=== PATIENT | female | born 1965 | race Caucasian/White ===

== ENCOUNTER 2023-06-17 13:44 | Outpatient (REF) | payer OTHER, SELFPAY ==
--- NOTE | ~2023-06-17 | XR_ITS ---
EXAMINATION: XR LUMBOSACRAL SPINE WITH OBLIQUES CLINICAL INFORMATION: Lumbar spondylolisthesis. COMPARISON: None available. TECHNIQUE: AP and lateral (neutral, flexion and extension) views of the lumbosacral spine are submitted. FINDINGS: There is bony demineralization. There is a mild lumbar levoscoliosis. At L1-L2, there is a 3 mm retrolisthesis and moderate disc space narrowing. At L2-L3, there is marked disc space narrowing and a 6 mm retrolisthesis. At L4-L5, there is a 5 mm anterolisthesis. At L5-S1, there is a 4 mm anterolisthesis and mild posterior disc space narrowing. No acute fracture or spondylolisthesis is seen. The posterior elements are intact. There is multi-level lumbar degenerative disc disease and spondylosis. There are right upper quadrant surgical clips. XR/XR lumbar spine 4V min IMPRESSION: There is multi-level lumbar degenerative disc disease, spondylosis and facet arthropathy. Degenerative disc disease is most pronounced at L2-L3, where it is severe.
== END 2023-06-17 13:45 | disposition home or self-care (01) ==
LOC: HO.HOSX 13:44
PROVIDERS: Visit Provider Physician Assistant
DX: M43.16 Spondylolisthesis, lumbar region (principal)
CPT/HCPCS: 72110

== ENCOUNTER 2023-06-17 13:44 | Outpatient (AMB) | payer OTHER, SELFPAY ==
--- NOTE | 2023-06-17 14:22 | MHC.OFFVIS ---
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 She is a 57-year-old female we knew from our practice at [facility]. We last saw her a few years ago for bilateral leg pain with lumbar stenosis at L4-5. Unfortunately due to life circumstances taking care of her mother she was unable to undergo the surgery but the symptoms have just continued to progress. She is failed conservative treatment in the form of physical therapy and cortisone injections. She is here today to review an MRI she had done at [place] in 2022 and discuss further surgical options. She describes the pain as daily in her back, almost all the time. The leg pain will act up when she is up and walking. It radiates down both of her outer thighs into her calves. It will radiate into her buttocks as well. It does go away to some degree when she sits but does not completely go away. The back pain is present even when she is sitting or standing but is aggravated when she has in a flexed posture. 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 On exam she has good strength of bilateral lower extremities with diminished reflexes bilaterally. Past medical history: I updated her medical history since I have not seen her in a few years, there have been no major changes. She is diabetic with an A1c of 7.1. History of hypertension, high cholesterol, arthritis, right knee replacement, biopsy of the cervix and biopsy of the left breast, cholecystectomy. Denies any bleeding disorders, heart attacks, strokes, coagulopathies etc.. Medications include aspirin monitor RO metformin glipizide pravastatin irbesartan Klonopin lamotrigine Allergies: Percocet and Demerol Lumbar MRI from [place] was reviewed and this shows she has multilevel degenerative disc disease with a severely collapsed disc at L2-3. She has a grade 1 spondylolisthesis at L4-5 with facet arthropathy and severe central canal stenosis. At L5-S1 she has collapse of the posterior disc with moderate foraminal stenosis as well as bilateral lateral recess stenosis with crowding of the S1 nerves. Impression: 57-year-old female known to us from our practice at [facility] who we have been following with conservative management for severe lumbar stenosis who has daily disabling back pain and bilateral lower extremity pain. She is failed conservative treatment. MRI as outlined above. I will send her for flexion-extension x-rays to evaluate her spondylolisthesis in weight-bearing position. I suspect in order to treat both her back pain and her leg pain she will need lumbar fusion, at L4-5 or possibly L5-S1 as well. I will review her imaging with Dr. Jenkins and get back to the patient. We did discuss the fact that if she ends up having surgery she will need to stop her Mounjaro and her aspirin 1 week prior to surgery. Total amount of time spent in this visit was 20 minutes in discussion of symptoms, lumbar MRI imaging results and subsequent plan of care Freddy Jenkins MD,PhD [facility] Orders: Orders XR lumbar spine 4V min Today M43.16 - Spondylolisthesis, lumbar region Coding Level of Care Code Est Pt Level 3 (01172) Diagnoses Spondylolisthesis, lumbar region M43.16
== END 2023-06-17 15:05 | disposition home or self-care (01) ==
PROVIDERS: Referring Provider Physical Medicine & Rehabilitation; Visit Provider Physician Assistant
DX: M43.16 Spondylolisthesis, lumbar region (principal)
CPT/HCPCS: 99213

== ENCOUNTER 2024-10-22 14:51 | Outpatient (AMB) | payer OTHER, SELFPAY ==
--- OUTSIDE RECORDS SUMMARY | 2024-10-22 14:54 | XMS_ITS | Clinical Summary ---
Author Organization [facility] Address [address] [place] [id number] Care Team Providers Care Cardiology Clinical Nurse Specialist Name Role Phone Freddy Dennis MD Primary Care Provider [phone] Allergies Active Allergy Reactions Criticality Noted Date Comments Clarithromycin Diarrhea High 05/08/2006 Meperidine 11/27/2017 Hydromorphone Other (See Comments) 03/26/2016 Oxycodone-Acetaminophen 11/27/2017 Medications Medication Sig Dispensed Refills Start Date End Date Status ARIPiprazole (ABILIFY) 10 MG tablet TAKE 1 TABLET DAILY (TAKE ALONG WITH 20 MG TABLET FOR TOTAL DAILY DOSE OF 30 MG/DAY) 5 11/07/2017 Active ARIPiprazole (ABILIFY) 20 MG tablet Take 10 mg by mouth 2 (two) times a day. 10/28/2017 Active celecoxib (CELEBREX) 100 MG capsule Take 100 mg by mouth 2 (two) times a day. 1 11/17/2017 Active clonazePAM (KLONOPIN) 0.5 MG tablet TAKE 2 TABLETS BY MOUTH EVERY MORNING AND TAKE 1 TABLET IN THE AFTERNOON NEEDED 11/24/2017 Active vitamin B-12 (CYANOCOBALAMIN) tablet 1000 mcg Take 1,000 mcg by mouth daily. 11 10/09/2017 Active cyclobenzaprine (FLEXERIL) 10 MG tablet TAKE 1 TABLET BY MOUTH 3 TIMES A DAY NEEDED SPASMS 10/28/2017 Active diclofenac (VOLTAREN) 50 MG EC tablet Take 50 mg by mouth 3 (three) times a day. 10/26/2017 Active dicyclomine (BENTYL) 10 MG capsule 1 CAPSULE BY MOUTH 4 TIMES A DAY FOR 30 DAYS 11 11/24/2017 Active TRULICITY 0.75 MG/0.5ML SOPN USE 0.5 ML BY SUBCUTANEOUS INJECTION EVERY WEEK 11 09/25/2017 Active TRULICITY 1.5 MG/0.5ML SOPN INJECT 0.5 ML SUBCUTANEOUS EVERY WEEK 11/23/2017 Active gabapentin (NEURONTIN) 300 MG capsule Take 300 mg by mouth 4 (four) times a day. 11/21/2017 Active glipiZIDE (GLUCOTROL) tablet 5 mg TAKE 1 TABLET BY MOUTH BEFORE BREAKFAST AND BEFORE DINNER 09/04/2017 Active FREESTYLE LITE test strip TEST BLOOD SUGARS THREE TIMES DAILY DX: E11.9 11/14/2017 Active lamoTRIgine (LAMICTAL) 200 MG tablet Take 200 mg by mouth 2 (two) times a day. 5 11/24/2017 Active loratadine (CLARITIN) 10 MG tablet Take 10 mg by mouth daily. 10/01/2017 Active Lancets (FREESTYLE) lancets CHECK BLOOD SUGAR TWICE A DAY DX 250.00 3 10/13/2017 Active losartan-hydrochlo rothiazide (HYZAAR) 100-25 MG per tablet Take 1 tablet by mouth daily. 10/04/2017 Active metFORMIN (GLUCOPHAGE-XR) ER 24 hr tablet 500 mg TAKE 2 TABLETS BY MOUTH TWICE A DAY FOR 1 MONTH 9 11/21/2017 Active pantoprazole (PROTONIX) 40 MG tablet Take 40 mg by mouth every morning before breakfast. 11/04/2017 Active polyethylene glycol (GLYCOLAX) powder DISSOLVE 17 GRAMS INTO WATER OR JUICE AND DRINK ONCE DAILY 11/18/2017 Active potassium chloride (KAYCIEL) 20 MEQ/15ML (10%) solution TAKE 7.5ML BY MOUTH DAILY 11/18/2017 Active pravastatin (PRAVACHOL) tablet 40 mg Take 40 mg by mouth daily. 10/04/2017 Active promethazine (PHENERGAN) tablet 25 mg TAKE 1 TABLET BY MOUTH 3 TIMES A DAY FOR 7 DAYS NEEDED FOR NAUSEA/VOMITING 0 09/03/2017 Active QUEtiapine (SEROQUEL) 25 MG tablet Take 25 mg by mouth daily. 2 10/28/2017 Active raNITIdine (ZANTAC) 300 MG tablet Take 300 mg by mouth every night at bedtime. 0 09/10/2017 Active triamcinolone (KENALOG) 0.1 % cream APPLY TO RASH ON BREASTS TWICE A DAY FOR 14 DAYS 0 10/07/2017 Active magnesium oxide (MAG-OX) 400 MG tablet Take 1 tablet by mouth daily. 5 12/12/2018 Active naproxen (NAPROSYN) 500 MG tablet Take 500 mg by mouth 2 (two) times a day. 0 12/17/2018 Active sucralfate (CARAFATE) 1 g tablet TAKE 1 TABLET 4 TIMES A DAY BEFORE MEALS AND AT BEDTIME 2 11/16/2018 Active warfarin (COUMADIN) 1 MG tablet Take 8 tabs daily or as directed by physician 56 tablet 0 01/22/2019 Active HYDROmorphone (DILAUDID) 2 MG tablet 1 to 2 tabs every 6 hours as needed for pain 50 tablet 0 02/02/2019 Active celecoxib (CeleBREX) 200 MG capsule TAKE 1 CAPSULE BY MOUTH EVERY DAY FOR 15 DAYS 0 01/19/2019 Active hydroCHLOROthiazid e (HYDRODIURIL) tablet 25 mg Take 25 mg by mouth daily. 0 05/19/2019 Active fluconazole (DIFLUCAN) 150 MG tablet TAKE 1 TABLET BY MOUTH ONCE A WEEK FOR 6 MONTHS 0 08/15/2020 Active irbesartan (AVAPRO) 300 MG tablet Take 300 mg by mouth daily. 0 06/26/2020 Active amitriptyline (ELAVIL) 10 MG tablet Take 10-20 mg by mouth every night at bedtime. 0 01/09/2021 Active indomethacin (INDOCIN) 50 MG capsule TAKE 1 CAPSULE BY MOUTH 2 TIMES A DAY FOR 7 DAYS, WITH FOOD OR MILK 0 01/17/2021 Active methocarbamol (ROBAXIN) 750 MG tablet Take 750 mg by mouth. 0 08/29/2021 Active acetaminophen-code ine (TYLENOL #3) 300-30 MG per tablet 0 01/24/2022 Active amoxicillin (AMOXIL) 500 MG tablet Take 4 tabs 1 hour prior to dental appointment 20 tablet 3 04/11/2022 Active Active Problems Problem Noted Date Diagnosed Date Primary osteoarthritis of left knee 06/01/2019 Arthritis of right knee 11/27/2017 Family History Medical History Relation Name Comments Clotting disorder Brother Diabetes Father Hypertension Father Cancer Mother Clotting disorder Mother Hypertension Mother Relation Name Status Comments Brother Father Mother Social History Tobacco Use Types Packs/Day Years Used Date Smoking Tobacco: Never Alcohol Use Standard Drinks/Week Comments Yes 0 (1 standard drink = 0.6 oz pur e alcohol) social Sex and Gender Information Value Date Recorded Sex Assigned at Not on file Gender Identity Not on file Sexual Orientation Not on file Job Start Date Occupation Industry Not on file Not on file Not on file Last Filed Vital Signs Vital Sign Reading Time Taken Comments Blood Pressure - - Pulse - - Temperature - - Respiratory Rate - - Oxygen Saturation - - Inhaled Oxygen Concentration - - Weight 128.4 kg (283 lb) 02/13/2022 9:12 AM EDT Height 162.6 cm (5' 4 ) 02/13/2022 9:12 AM EDT Body Mass Index 48.58 02/13/2022 9:12 AM EDT Plan of Treatment Health Maintenance Due Date Last Done Comments Hepatitis B Vaccines (1 of 3 - 3-dose series) 1966 Hepatitis C Screening 1966 Depression Screening 1978 BMI Counseling 1984 Preventative Health Evaluation 1984 Cervical Cancer Screening (Pap Smear) 10/21/1987 Colon Cancer Screening (Colonoscopy) 10/21/2011 Pneumococcal Vaccine (2 of 2 - PCV) 06/22/2013 06/22/2012 Breast Cancer Screening (Mammogram) 2016 Shingrix-Zoster Vaccine (1 o f 2) 2016 DTap / Tdap / Td (3 - Td or Tdap) 04/06/2020 04/06/2010, 11/24/1999 COVID-19 Vaccine (2 - 2023-2 5 season) 2024 11/14/2020 Influenza Vaccine (#1) 2024 RSV Ped < 20 months Aged Out No longe r eligible based on patient's age to complete this topic Care Teams Cardiology Clinical Nurse Specialist Relationship Specialty Start Date End Date Freddy Dennis MD [address] [place] [address], [address] [place] [address] PCP - General Supervisor Insecticide 11/18/17
--- NOTE | 2024-10-22 15:01 | HO.SPINEOV ---
Intake Visit Reasons: Back pain Intake Note: Ms. Landeros is her today c/o back pain. Autopsy Assistant Required: No Assessment & Plan Assessment & Plan (1) Spondylolisthesis, lumbar region: Code(s): M43.16 - Spondylolisthesis, lumbar region Category: Medical Plan Mrs Landeros is here in follow-up. She recently strained her back. She is not sure exactly what happened just woke up feeling pain radiating up the center of her spinal column. No lower extremity symptoms. She has been trying [id number] medications and giving this a little bit of time. On exam, she is a little uncomfortable we would able to stand and walk with a normal gait in the hallway. I got x-rays today and this shows stable degenerative changes at L2-3 and a slight spondylolisthesis at L4-5. We had previously consider targeting L4-5 for fusion surgery, but the symptoms in her lower extremities went away so she was reluctant to proceed which is certainly reasonable. I told her to give this current back flare-up some more time but if it does not get better we could certainly consider getting her an MRI. Total amount of time spent in this visit was 20 minutes in discussion of symptoms, lumbar x-ray imaging results and subsequent plan of care Freddy Jenkins MD,PhD [facility] Orders: Orders XR lumbar spine 4V min Today M43.16 - Spondylolisthesis, lumbar region Coding Level of Care Code Est Pt Level 3 (81368) Diagnoses Spondylolisthesis, lumbar region M43.16
== END 2024-10-22 15:58 | disposition home or self-care (01) ==
LOC: HO.HNS 14:51
PROVIDERS: Visit Provider Physician Assistant
DX: M43.16 Spondylolisthesis, lumbar region (principal)
CPT/HCPCS: 99213

== ENCOUNTER 2024-10-22 14:51 | Outpatient (REF) | payer OTHER, SELFPAY ==
--- NOTE | ~2024-10-22 | XR_ITS ---
EXAMINATION: Lumbar spine 4 views. CLINICAL INDICATION: Low back pain. Spondylolisthesis. COMPARISON: Lumbar spine 06/17/2023. FINDINGS: There is normal lumbar lordosis with grade 1 retrolisthesis L2 over L3 and anterolisthesis L4-L5. On flexion and extension views there is no significant movement at these disc levels are any of the lumbar disc levels. There is endplates sclerosis and moderate ventral spondylosis at L1-2 and L2-3 disc level. There is minimal levoscoliosis and upper lumbar spine. The vertebral heights are normal. No acute fracture, lytic process seen. The paravertebral soft tissues are normal. XR/XR lumbar spine 4V min IMPRESSION: Grade 1 anterolisthesis L4-L5 and grade 1 retrolisthesis L2 over L3. These are stable. No change on flexion-extension views. Degenerative disc changes with endplate sclerosis and ventral spondylosis at L1-2 L2-3 disc levels. Electronically signed by: Kumar Castillo MD 10/25/2024 07:15 AM EDT
== END 2024-10-22 14:52 | disposition home or self-care (01) ==
LOC: HO.HOSX 14:51
PROVIDERS: Visit Provider Physician Assistant
DX: M43.16 Spondylolisthesis, lumbar region (principal)
CPT/HCPCS: 72110

== ENCOUNTER → 2024-10-22 15:22 | Outpatient (BNV) | payer OTHER, SELFPAY | PROVIDERS: Visit Provider Radiology Diagnostic Radiology | DX: M43.16 Spondylolisthesis, lumbar region (principal) | CPT/HCPCS: 72110 ==